=== PATIENT | female | born 2000 | race African-American/Black ===

== ENCOUNTER 2023-05-31 18:44 | Emergency (ER) | payer MEDICAID ==
[2023-05-31 19:33] LABS: BASO% 0.1 % (0-3); EOS% 0.7 % (0-8); HEMATOCRIT 39.9 % (37.0-47.0); HEMOGLOBIN 13.1 g/dl (12.0-16.0); IMMATURE GRANULOCYTES 0.1 % (0.0-5.0); LYMPH% 27.7 % (15-41); MEAN CELL VOLUME 91.3 fL CALC (80.0-100.0); MEAN CORPUSCULAR HGB CONC 32.8 g/dL CAL (32.0-36.0); MONO% 8.3 % (2-13); NEUT# 5.16 thou/uL (2.00-7.15); NEUT% 63.1 % (42-76); RED BLOOD COUNT 4.37 mill/uL (4.20-5.60); RED CELL DISTRI WIDTH 12.9 % (11.5-15.5)
[2023-05-31 19:36] LABS: ALBUMIN 4.7 g/dL (3.2-5.0); ALKALINE PHOSPHATASE 50 u/l (38-126); ANION GAP 13 (6-22 (CALC)); BILIRUBIN, TOTAL 0.3 mg/dL (0.02-1.3); BUN 6 mg/dL (7-17); BUN/CREATININE RATIO 9 (12-20 (CALC)); CARBON DIOXIDE 25 mmol/l (22-30); CHLORIDE 101 mmol/l (95-108); CREATININE 0.6 mg/dL (0.5-1.0); GFR FOR AFR.AMER. > 60 ML/MIN (>=60 (CALC)); GFR OTHER RACES > 60 ML/MIN (>=60 (CALC)); POTASSIUM 3.8 mmol/l (3.5-5.1); SGOT/AST 27 u/l (14-36); SODIUM 135 mmol/l (137-146); TOTAL PROTEIN 8.6 g/dL (6.3-8.2)
[2023-05-31 19:37] LABS: URINE BILIRUBIN - DIPSTICK NEGATIVE (NEGATIVE); URINE COLOR YELLOW; URINE GLUCOSE - DIPSTICK NEGATIVE (NEGATIVE); URINE KETONE TRACE mg/dL (NEGATIVE)
[2023-05-31 19:38] LABS: URINE BLOOD DIPSTICK NEGATIVE (NEGATIVE); URINE LEUK ESTERASE SMALL (NEGATIVE); URINE NITRITE - DIPSTICK NEGATIVE (Negative); URINE PROTEIN - DIPSTICK Trace mg/dL (NEG-TRACE); URINE SPECIFIC GRAVITY 1.025; URINE UROBILINOGEN - DIPSTICK 0.2 E.U./dL (0.2)
[2023-05-31 19:40] LABS: URINE BACTERIA MODERATE hpf; URINE SQUAMOUS EPITHELIAL CELL MODERATE EPI/hpf (0-FEW)
[2023-05-31] MEDS ORDERED: KEFLEX500 MG PO (19:43)
[2023-05-31 19:53] VITALS: BP 112/74
== END 2023-05-31 20:01 | disposition home or self-care (01) ==
LOC: ED 18:44
PROVIDERS: Nurse Practitioner
DX: O99.891 Other specified diseases and conditions complicating pregnancy (principal); M54.50 Low back pain, unspecified; O23.40 Unspecified infection of urinary tract in pregnancy, unspecified trimester; N39.0 Urinary tract infection, site not specified; Z3A.00 Weeks of gestation of pregnancy not specified

== ENCOUNTER 2023-08-03 09:48 | Emergency (ER) | payer OTHER ==
[2023-08-03] VITALS (10 sets, daily range): BP systolic 99–113; BP diastolic 62–70
[~2023-08-03 09:48] MED LIST: KEFLEX500 MG PO
[2023-08-03 10:33] LABS: URINE BILIRUBIN - DIPSTICK Negative (NEGATIVE); URINE BLOOD DIPSTICK Negative (NEGATIVE); URINE GLUCOSE - DIPSTICK Negative (NEGATIVE); URINE KETONE Negative (NEGATIVE); URINE LEUK ESTERASE Trace (NEGATIVE); URINE NITRITE - DIPSTICK Negative (Negative); URINE PH 8.5 (4.5-8.0); URINE PROTEIN - DIPSTICK 30 mg/dL (NEG-TRACE); URINE UROBILINOGEN - DIPSTICK 0.2 E.U./dL (0.2)
[2023-08-03 10:35] LABS: URINE COLOR Yellow
[2023-08-03 10:47] LABS: URINE BACTERIA MODERATE hpf; URINE SQUAMOUS EPITHELIAL CELL MODERATE EPI/hpf (0-FEW); URINE WBC 0-2 WBC/hpf (0-5)
[2023-08-03] MEDS ORDERED: KEFLEX500 MG PO (13:29)
== END 2023-08-03 13:43 | disposition home or self-care (01) ==
LOC: ED 09:48
PROVIDERS: Family Medicine
DX: O23.42 Unspecified infection of urinary tract in pregnancy, second trimester (principal); N39.0 Urinary tract infection, site not specified; Z3A.17 17 weeks gestation of pregnancy

== ENCOUNTER 2023-09-07 15:30 | Emergency (ER) | payer OTHER ==
[~2023-09-07] VITALS: Ht 167.6 cm; Wt 74.0 kg
[2023-09-07] MEDS ORDERED: PENICILLN VK500 MG PO (16:09)
[2023-09-07 16:35] VITALS: BP 102/63
== END 2023-09-07 16:50 | disposition home or self-care (01) ==
LOC: ED 15:30
DX: O99.619 Diseases of the digestive system complicating pregnancy, unspecified trimester (principal); K04.7 Periapical abscess without sinus; Z3A.00 Weeks of gestation of pregnancy not specified

== ENCOUNTER 2023-11-14 17:42 | Emergency (ER) | payer OTHER ==
[~2023-11-14] VITALS: Ht 167.6 cm; Wt 81.0 kg
[~2023-11-14 17:42] MED LIST changes: +CLINDAMYCIN300 M1 PO; +PENICILLN VK500 MG PO; +TRAMADOL HCL50 MG PO
[2023-11-14 18:18] LABS: URINE BILIRUBIN - DIPSTICK Negative (NEGATIVE); URINE BLOOD DIPSTICK Negative (NEGATIVE); URINE COLOR Yellow; URINE GLUCOSE - DIPSTICK Negative (NEGATIVE); URINE KETONE Negative (NEGATIVE); URINE LEUK ESTERASE Negative (NEGATIVE); URINE NITRITE - DIPSTICK Negative (Negative); URINE PH 6.5 (4.5-8.0); URINE PROTEIN - DIPSTICK Negative (NEG-TRACE); URINE UROBILINOGEN - DIPSTICK 0.2 E.U./dL (0.2)
[2023-11-14 20:22] VITALS: BP 117/70
== END 2023-11-14 20:27 | disposition home or self-care (01) ==
LOC: ED 17:42
PROVIDERS: Emergency Medicine
DX: O47.9 False labor, unspecified (principal); Z3A.00 Weeks of gestation of pregnancy not specified

== ENCOUNTER 2023-12-22 00:44 | Emergency (ER) | payer OTHER ==
[~2023-12-22] VITALS: Ht 167.6 cm; Wt 79.3 kg
[2023-12-22 00:59] VITALS: BP 120/76
[2023-12-22] MEDS ORDERED: PRENATA3 PO (01:23)
[2023-12-22 02:30] VITALS: BP 115/78
[2023-12-22 02:45] VITALS: BP 109/74
[2023-12-22 06:13] VITALS: BP 109/74
== END 2023-12-22 03:00 ==
LOC: ED 00:44
DX: Z34.00 Encounter for supervision of normal first pregnancy, unspecified trimester (principal); Z3A.00 Weeks of gestation of pregnancy not specified